=== PATIENT | female | born 1950 | race Caucasian/White ===

== ENCOUNTER 2016-09-07 08:52 | Outpatient (CLI) | payer OTHER ==
[~2016-09-07 08:52] MED LIST: SIMVASTATIN20 MG PO
--- NOTE | 2016-09-07 10:46 | DIAGNOSTIC IMAGING REPORT ---
PROCEDURE: US VENOUS - BILATERAL EXT INDICATION: INSUFFICIENCY,VARICOSE VEINS TECHNIQUE: Duplex sonography of the deep and superficial venous system in both lower extremities was performed. Compression and augmentation techniques were used. The patient was scanned in the upright position. Surveillance of the venous system during Valsalva maneuver when appropriate was performed. COMPARISON: None. FINDINGS: Each interrogated segment of the deep vein demonstrates normal compressibility, augmentation, and normal color Doppler flow without filling defect. No thrombus in either greater saphenous or short saphenous vein. There is venous insufficiency of the left common femoral vein ( 7.8 seconds), proximal greater saphenous vein (6.4 mm diameter, 11.1 seconds) and mid greater saphenous vein (diameter 4.1 mm, 10.3 seconds). There is venous insufficiency of the right common femoral vein (11.7 seconds), mid superficial femoral vein (1.7 seconds), proximal greater saphenous vein (diameter 10.5 mm, 11.8 seconds), mid greater saphenous vein (diameter 2.2 mm, 10.5 seconds) and distal greater saphenous vein (diameter 2 mm, 11.4 seconds). Prominent varicose veins bilaterally, most prominent in the right groin area. There is a complex mass medial to the right knee matter which measures 2 x 1.3 x 1.0 sinus which may represent a hematoma.. IMPRESSION: 1. No evidence of a DVT in both lower extremities 2. Venous insufficiency of the deep venous systems (right common femoral, right superficial femoral and left common femoral veins 3. Venous insufficiency of the superficial systems (bilateral greater saphenous veins)
== END 2016-09-07 23:00 ==
LOC: US SRH 08:52
DX: I87.2 Venous insufficiency (chronic) (peripheral) (principal)